=== PATIENT | male | born 1940 | race Caucasian/White ===

== ENCOUNTER 2019-08-09 13:59 | Inpatient (IN) | payer MEDICARE, OTHER ==
[~2019-08-09] VITALS: Ht 162.6 cm; Wt 104.3 kg
[~2019-08-09 13:59] MED LIST: BENA20TA9 PO; ESOM40CA PO; GABA-532 PO; METO50TA16 PO; ROSU5TAB PO; SPIR25TA PO; TAMS-3 PO
[2019-08-09 14:44] LABS: BASOPHILS % (AUTO) 0.6 % (0.0-2.0); EOSINOPHILS # (AUTO) 0.1 K/uL (0.0-0.7); EOSINOPHILS % (AUTO) 1.6 % (0.0-7.0); HEMATOCRIT 38.6 % (36.7-47.1); HEMOGLOBIN 12.8 g/dL (12.5-16.3); LYMPHOCYTES # (AUTO) 2.5 K/uL (20.0-40.0); LYMPHOCYTES % (AUTO) 29.2 % (20.5-51.5); MEAN CORPUSCULAR HEMOGLOBIN 30.5 uug (23.8-33.4); MEAN CORPUSCULAR HGB CONC 33 g/dL (32.5-36.3); MEAN CORPUSCULAR VOLUME 91.7 fL (73.0-96.2); MONOCYTES # (AUTO) 0.6 K/uL (2.0-10.0); MONOCYTES % (AUTO) 7.1 % (0.0-11.0); NEUTROPHILS # (AUTO) 5.3 K/uL (1.8-8.9); NEUTROPHILS % (AUTO) 61.5 % (38.5-71.5); PLATELET COUNT (AUTO) 225 K/uL (152-348); WHITE BLOOD COUNT (AUTO) 8.6 K/uL (3.6-10.2)
[2019-08-09 14:54] LABS: CREATININE 1.1 mg/dL (0.6-1.3); POTASSIUM 4.3 mmol/L (3.5-5.1)
[2019-08-09 14:59] LABS: BILIRUBIN,TOTAL 0.5 mg/dL (0.2-1.0)
[2019-08-09] MEDS ORDERED: VANCOMYCIN IV 1,000 MG in IV DEXTROSE 5% 250 ML IV ONE (16:15)
[2019-08-09] MEDS ORDERED: CIPR-262 PO (16:16)
[2019-08-09] MEDS ORDERED: VANCOMYCIN IV 200 ML ONE (16:26)
--- NOTE | 2019-08-09 17:14 | NUR ---
trnasfered pt to floor in stable condition, pt at bedside the whole er stay.
--- NOTE | 2019-08-09 17:25 | NUR ---
RECEIVED PATIENT FOR ADMISSION 79 YRS OLD WITH DX OF CELLULITIS BOTH LOWER EXT PLACED INTO BED FIXED AND MADE COMFORTABLE PATIENT IS ALERT AND ORIENTED DENIES PAIN OR DISCOMFORTS AT THIS TIME HAS A COLOSTOMY WITH POUCH INTACT HAS 2 FISTULAS ON LEFT AND RIGHT BUTTOCKS DRESSING CHANGED ORDERED BOTH LOWER EXT SWOLLEN ELEVATED ON THE PILLOW MADE COMFORTABLE ADMISSION ORDERS NOTED FROM DR FINLEY. PATIENTS IS AT THE BEDSIDE.
[2019-08-09] MEDS ORDERED: ACETAMINOPHEN 325 MG TABLET PO PRN (17:30)
[2019-08-09] MEDS ORDERED: HYDROCODONE/APAP 5-325MG TABLET PO PRN (17:30)
[2019-08-09] MEDS ORDERED: ONDANSETRON 4 MG/2 ML VIAL IV PRN (17:30)
[2019-08-09] MEDS ORDERED: MAGNESIUM HYDROXIDE 30 ML LIQUID UDC PO PRN (17:30)
[2019-08-09] MEDS ORDERED: Z GUARD REMEDY PASTE 57 GM TUBE TOP PRN (17:30)
[2019-08-09 17:54] VITALS: BP 128/59
--- NOTE | 2019-08-09 18:46 | NUR ---
[employer] HERE HERE TO SEE PATIENT WITH NEW ORDERS AND NOTED
--- NOTE | 2019-08-09 18:47 | NUR ---
CLINICAL PHARMACY NOTES (VANCOMYCIN DOSING) S: 79 YO male with DX of cellulitis ; ordered Vancomycin per pharmacy. O: BUN/SCR 21/1.1, WBC 8.6, TEMP 98.3, DOSING WT 230 LBS; T 1/2 16.5 HRS, CRCL 44.8 A/P: PT received 1 gm Vanco in ER , will administer another 500 mg to make up for the dose of 1500 mg (dose #1) and will continue with regimen of 1500 mg q19h 2nd dose to start tomorrow @ 1400. This regimen would yield peak of 36 and trough of 18. Plan to order trough prior to 4th dose (not ordered yet). ID also add cipro 500 mg po q12h. Will continue to monitor renal fxn and make the necessary adjustments.
[2019-08-09] MEDS ORDERED: VANCOMYCIN IV 500 MG in IV DEXTROSE 5% 100 ML IV SCH (19:00)
--- NOTE | 2019-08-09 19:30 | NUR ---
RECEIVED PATIENT AWAKE IN BED, ALBANIAN SPEAKING MAINLY, BUT SPEAKS/ UNDERSTANDS SOME MEXICAN. PATIENT DENIES PAIN OR SHORTNESS OF BREATH AT THE MOMENT. IV SITE IN LEFT FOREARM 22G PATENT, FLUSHING, AND INTACT. IMMEDIATE NEEDS ATTENDED WILL CONTINUE TO MONITOR
[2019-08-09 20:01] VITALS: BP 130/54
[2019-08-09] MEDS: CIPROFLOXACIN HCL 250 MG TABLET PO SCH (21:05)
[2019-08-09] MEDS: ENOXAPARIN SODIUM 40 MG/0.4 ML DISP.SYRIN SQ SCH (21:09)
[2019-08-09] MEDS: Z GUARD REMEDY PASTE 57 GM TUBE TOP SCH (22:31)
[2019-08-10 04:19] VITALS: BP 125/62
--- NOTE | 2019-08-10 06:40 | NUR ---
PATIENT SLEPT WELL THROUGHOUT THE NIGHT. TOLERATED MEDICATIONS. NO ACUTE CHANGE IN CONDITION. VITAL SIGNS WITHIN NORMAL. WILL ENDORSE TO ONCOMING SHIFT.
[2019-08-10 06:48] LABS: BASOPHILS % (AUTO) 0.5 % (0.0-2.0); CREATININE 0.9 mg/dL (0.6-1.3); EOSINOPHILS # (AUTO) 0.2 K/uL (0.0-0.7); EOSINOPHILS % (AUTO) 2.6 % (0.0-7.0); HEMATOCRIT 37.1 % (36.7-47.1); HEMOGLOBIN 12.4 g/dL (12.5-16.3); LYMPHOCYTES # (AUTO) 2.8 K/uL (20.0-40.0); MAGNESIUM 2.2 mg/dL (1.8-2.4); MEAN CORPUSCULAR HGB CONC 33 g/dL (32.5-36.3); MEAN CORPUSCULAR VOLUME 92.8 fL (73.0-96.2); MONOCYTES # (AUTO) 0.6 K/uL (2.0-10.0); MONOCYTES % (AUTO) 7.7 % (0.0-11.0); NEUTROPHILS # (AUTO) 4.5 K/uL (1.8-8.9); NEUTROPHILS % (AUTO) 55.2 % (38.5-71.5); PHOSPHOROUS 3.6 mg/dL (2.5-4.9); PLATELET COUNT (AUTO) 211 K/uL (152-348); POTASSIUM 4.8 mmol/L (3.5-5.1); WHITE BLOOD COUNT (AUTO) 8.2 K/uL (3.6-10.2)
--- NOTE | 2019-08-10 08:00 | NUR ---
RECEIVED IN BED AWAKE ALERT AND ORIENTED DENIES PAIN OR DISCOMFORTS AT THIS TIME CALL LIGHTS AND PERSONAL BELONGINGS ARE WITHIN EASY REACH BOTH LEGS FLOATED WITH PEARL EDEMA MADE COMFORTABLE WILL CONTINUE TO OBSERVE.
[2019-08-10] MEDS ORDERED: Medication Not On Formulary EA (Rosuvastatin Calcium (Crestor) 10 MG) PO SCH (09:00)
[2019-08-10] MEDS ORDERED: TAMSULOSIN HCL 0.4 MG CAP.SR.24H PO SCH (09:00)
[2019-08-10] MEDS: SPIRONOLACTONE 25 MG TABLET PO SCH (09:39)
[2019-08-10] MEDS: GABAPENTIN 100 MG CAPSULE PO SCH (09:39)
[2019-08-10] MEDS: CIPROFLOXACIN HCL 250 MG TABLET PO SCH ×2 (09:39→20:50)
[2019-08-10] MEDS: BENAZEPRIL HCL 20 MG TABLET PO SCH (09:40)
[2019-08-10] MEDS: METOPROLOL TARTRATE 50 MG TABLET PO SCH (09:41)
[2019-08-10] MEDS: Z GUARD REMEDY PASTE 57 GM TUBE TOP SCH ×2 (09:48→20:51)
[2019-08-10 11:47] VITALS: BP 105/55
[2019-08-10] MEDS: VANCOMYCIN IV 1,500 MG in IV DEXTROSE 5% 500 ML IV SCH (13:30)
--- NOTE | 2019-08-10 14:00 | NUR ---
REMAIN ON ANTIBIOTICS ORDERED WITH NO ADVERSE OR ALLERGIC REACTIONS AT THIS TIME. AT THE BEDSIDE AND ASSISTING WITH CARE
--- NOTE | 2019-08-10 14:26 | NUR ---
CLINICAL PHARMACY NOTES (VANCOMYCIN DOSING) S: 79 YO male with DX of cellulitis ; ordered Vancomycin per pharmacy. O: BUN/SCR 17/0.9, WBC 8.2, TEMP 98.2, DOSING WT 230 LBS; T 1/2 16.5 HRS, CRCL 44.8 A/P: Will continue regimen of 1500mg q19hrs for peak of 36 and trough of 18. Plan to order trough prior to 4th dose (not ordered yet). I2nd dose today at 1400. Will continue to monitor renal fxn and make the necessary adjustments.
[2019-08-10 15:30] VITALS: BP 99/57
[2019-08-10] MEDS ORDERED: VANCOMYCIN IV 1,000 MG in IV DEXTROSE 5% 250 ML IV SCH (17:00)
--- NOTE | 2019-08-10 19:30 | NUR ---
RECEIVED PT AWAKE, ALERT AND ORIENTEDX4. PT IN NO ACUTE DISTRESS. AT BEDSIDE. SAFETY AND COMFORT PROVIDED. IV INTACT. WILL COTNINUE TO MONITOR.
[2019-08-10 20:39] VITALS: BP 116/56
[2019-08-10] MEDS: ATORVASTATIN 20 MG TABLET PO SCH (20:50)
[2019-08-10] MEDS: ENOXAPARIN SODIUM 40 MG/0.4 ML DISP.SYRIN SQ SCH (20:52)
[2019-08-10] MEDS: ZOLPIDEM 5 MG TABLET PO PRN (23:34)
--- NOTE | 2019-08-11 06:15 | NUR ---
PT SLEPT THROUGHOUT THE SHIFT. PT SHOWS NO SIGNS OF ACUTE DISTRESS. SAFETY AND COMFORT PROVIDED. ALL NEEDS ARE MET. PRESCRIBED MEDICATION GIVEN AND PT TOLERATED IT WELL. PT COOPERATIVE WITH CARE. WILL ENDORSE TO INCOMING NURSE FOR CONTINUITY OF CARE.
[2019-08-11 06:30] VITALS: BP 120/67
--- NOTE | 2019-08-11 07:30 | NUR ---
PATIENT IS AWAKE ALERT AND COOPERATIVE IS QAT THE BEDSIDE AT THIS TIME DENIES PAIN OR DISCOMFORTS AT THIS TIME ASSISTED WITH REPOSITIONING WITH HEELS FLOATED REMAIN ON ATB WITH NO ADVERSE OR ALLERGIC REACTIONS AT THIS TIME MADE COMFORTABLE WILL CONTINUE TO OBSERVE.
[2019-08-11 07:32] LABS: BASOPHILS % (AUTO) 0.5 % (0.0-2.0); EOSINOPHILS # (AUTO) 0.2 K/uL (0.0-0.7); EOSINOPHILS % (AUTO) 2.2 % (0.0-7.0); HEMATOCRIT 39.6 % (36.7-47.1); HEMOGLOBIN 13.1 g/dL (12.5-16.3); LYMPHOCYTES # (AUTO) 2.5 K/uL (20.0-40.0); LYMPHOCYTES % (AUTO) 33.8 % (20.5-51.5); MEAN CORPUSCULAR HEMOGLOBIN 30.6 uug (23.8-33.4); MEAN CORPUSCULAR HGB CONC 33 g/dL (32.5-36.3); MEAN CORPUSCULAR VOLUME 92.5 fL (73.0-96.2); MONOCYTES # (AUTO) 0.5 K/uL (2.0-10.0); MONOCYTES % (AUTO) 6.9 % (0.0-11.0); NEUTROPHILS # (AUTO) 4.2 K/uL (1.8-8.9); NEUTROPHILS % (AUTO) 56.6 % (38.5-71.5); PLATELET COUNT (AUTO) 204 K/uL (152-348); RED BLOOD CELL COUNT(AUTO) 4.28 MIL/uL (4.06-5.63); WHITE BLOOD COUNT (AUTO) 7.4 K/uL (3.6-10.2)
[2019-08-11 07:38] LABS: CREATININE 0.9 mg/dL (0.6-1.3); MAGNESIUM 2.2 mg/dL (1.8-2.4); PHOSPHOROUS 3.6 mg/dL (2.5-4.9); POTASSIUM 4.6 mmol/L (3.5-5.1)
--- NOTE | 2019-08-11 07:54 | NUR ---
CLINICAL PHARMACY NOTES (VANCOMYCIN DOSING) S: To continue vanco dosing for this 79 YO male for cellulitis. O: BUN/SCR 17/0.9, WBC 7.4, TEMP 98.2 wt 104 kg ht 162 cm A/P: Will continue same regimen of 1500mg IVPB q19hrs for today.3rd dose today at 0900. Plan to order trough prior to 4th dose (ordered for 08/12 at 0330-RN has been informed to hold 0400 dose if vanco trough level above 20 mcg/ml). Pharmacy shall review the level in am & adjust the dose if needed. will follow
[2019-08-11] MEDS: SPIRONOLACTONE 25 MG TABLET PO SCH (08:34)
[2019-08-11] MEDS: GABAPENTIN 100 MG CAPSULE PO SCH (08:34)
[2019-08-11] MEDS: METOPROLOL TARTRATE 50 MG TABLET PO SCH (08:35)
[2019-08-11] MEDS: VANCOMYCIN IV 1,500 MG in IV DEXTROSE 5% 500 ML IV SCH (08:36)
[2019-08-11] MEDS: CIPROFLOXACIN HCL 250 MG TABLET PO SCH ×2 (08:36→20:08)
[2019-08-11] MEDS: BENAZEPRIL HCL 20 MG TABLET PO SCH (08:36)
[2019-08-11] MEDS: Z GUARD REMEDY PASTE 57 GM TUBE TOP SCH ×2 (08:41→20:12)
--- NOTE | 2019-08-11 09:22 | NUR ---
PHYSICAL THERAPY HERE SEEN PATIENT AND HE WALKED IN THE HALLEAY WITH THE FRONT WHEEL WALKER WITH FAIR ENDURANCE AND BACK TO BED
[2019-08-11 11:18] VITALS: BP 111/43
--- NOTE | 2019-08-11 11:24 | NUR ---
PATIENT SEEN AND EXAMINED BY DR KIRK WITH NEW ORDERS AND NOTED.
[2019-08-11 15:42] VITALS: BP 113/38
--- NOTE | 2019-08-11 16:49 | NUR ---
REMAIN ON ATB ORDERED WITH NO ADVERSE OR ALLERGIC REACTIONS AT THIS TIME TX IN PROGRESS ORDERED AT THE BEDSIDE MADE COMFORTABLE WILL CONTINUE TO OBSERVE
--- NOTE | 2019-08-11 19:30 | NUR ---
RECEIVED PT AWAKE, ALERT AND ORIENTEDX4. PT IN NO ACUTE DISTRESS. IV INTACT. SAFETY AND COMFORT PROVIDED. WILL CONTINUE TO MONITOR.
[2019-08-11] MEDS: ATORVASTATIN 20 MG TABLET PO SCH (20:09)
[2019-08-11] MEDS: ENOXAPARIN SODIUM 40 MG/0.4 ML DISP.SYRIN SQ SCH (20:09)
[2019-08-11 20:10] VITALS: BP 116/53
[2019-08-11] MEDS ORDERED: TAMSULOSIN HCL 0.4 MG CAP.SR.24H PO SCH (21:00)
[2019-08-11] MEDS: ZOLPIDEM 5 MG TABLET PO PRN (23:51)
[2019-08-12 03:49] LABS: BASOPHILS % (AUTO) 0.4 % (0.0-2.0); EOSINOPHILS # (AUTO) 0.2 K/uL (0.0-0.7); EOSINOPHILS % (AUTO) 2.2 % (0.0-7.0); HEMATOCRIT 40.2 % (36.7-47.1); HEMOGLOBIN 13.3 g/dL (12.5-16.3); LYMPHOCYTES # (AUTO) 2.2 K/uL (20.0-40.0); LYMPHOCYTES % (AUTO) 21.8 % (20.5-51.5); MEAN CORPUSCULAR HEMOGLOBIN 30.1 uug (23.8-33.4); MEAN CORPUSCULAR HGB CONC 33 g/dL (32.5-36.3); MEAN CORPUSCULAR VOLUME 90.9 fL (73.0-96.2); MONOCYTES # (AUTO) 0.7 K/uL (2.0-10.0); MONOCYTES % (AUTO) 6.9 % (0.0-11.0); NEUTROPHILS # (AUTO) 6.8 K/uL (1.8-8.9); NEUTROPHILS % (AUTO) 68.7 % (38.5-71.5); PLATELET COUNT (AUTO) 225 K/uL (152-348); RED BLOOD CELL COUNT(AUTO) 4.42 MIL/uL (4.06-5.63)
[2019-08-12 04:01] LABS: CREATININE 0.8 mg/dL (0.6-1.3); PHOSPHOROUS 3.7 mg/dL (2.5-4.9); POTASSIUM 4.2 mmol/L (3.5-5.1)
[2019-08-12 04:12] LABS: THYROID STIMULATING HORMONE 1.522 mIU/mL (0.358-3.740)
[2019-08-12] MEDS: VANCOMYCIN IV 1,500 MG in IV DEXTROSE 5% 500 ML IV SCH (04:17)
[2019-08-12 05:24] VITALS: BP 120/72
--- NOTE | 2019-08-12 06:25 | NUR ---
PT SLEPT THROUGHOUT THE SHIFT. PT IN NO ACUTE DISTRESS. IV INTACT. SAFETY AND COMFORT PROVIDED.PT COMPLIANT WITH CARE. ALL NEEDS ARE MET. WILL ENDORSE TO INCOMING NURSE FOR CONTINUITY OF CARE.
--- NOTE | 2019-08-12 08:00 | NUR ---
PATIENT IS AWAKE ALERT X3 AND COOPERATIVE IS AT THE BEDSIDE. AT THIS TIME PATIENT DENIES PAIN OR DISCOMFORTS AT THIS TIME ASSISTED WITH REPOSITIONING WITH HEELS FLOATED REMAIN ON ABX WITH NO ADVERSE OR ALLERGIC REACTIONS AT THIS TIME MADE COMFORTABLE WILL CONTINUE TO MONITOR FOR SAFETY AND COMFORT.
[2019-08-12] MEDS: Z GUARD REMEDY PASTE 57 GM TUBE TOP SCH (09:23)
[2019-08-12] MEDS: METOPROLOL TARTRATE 50 MG TABLET PO SCH (09:24)
[2019-08-12] MEDS: SPIRONOLACTONE 25 MG TABLET PO SCH (09:25)
[2019-08-12] MEDS: GABAPENTIN 100 MG CAPSULE PO SCH (09:25)
[2019-08-12] MEDS: CIPROFLOXACIN HCL 250 MG TABLET PO SCH (09:26)
[2019-08-12] MEDS: BENAZEPRIL HCL 20 MG TABLET PO SCH (09:26)
[2019-08-12] MEDS ORDERED: DOXY100C41 PO (10:21)
[2019-08-12] MEDS ORDERED: CIPR250T4 PO (10:21)
--- NOTE | 2019-08-12 10:30 | NUR ---
ORDER FOR DISCHARGE RECEIVED. PT ALERT AND ORIENTED X3. PATIENT DENIES PAIN AT THIS TIME. NO ACUTE DISTRESS OR SOB NOTED. CALL LIGHT WITHIN REACH. AT BEDSIDE. TREATED WOUNDS ON BUTTOCKS ORDERED. NURSE STAND BY. PICS TAKEN. WILL PROCEED WITH DISCHARGE PROCEDURE. PT STABLE FOR DISCHARGE PER MD.
[2019-08-12 11:08] VITALS: BP 119/52
--- NOTE | 2019-08-12 12:28 | NUR ---
PT HAS BEEN DISCHARGED. PT STABLE PER MD. NO ACUTE DISTRESS OR SOB NOTED. BELONGINGS RETURNED. BELONGINGS LIST SIGNED. DISCHARGE INSTRUCTIONS, PRESCRIPTION AND FOLLOW UP DR REFERRAL GIVEN TO AND PATIENT WITH GOOD UNDERSTANDING. IV REMOVED INTACT. PICTURES TAKEN. PT ESCORTED TO MAIN LOBBY BY [employer]AFF. PT TO GO HOME VIA PRIVATE TRANSPORT DRIVEN BY .
--- NOTE | 2019-08-12 14:02 | NUR ---
CLINICAL PHARMACY NOTES (VANCOMYCIN DOSING) S: To continue vanco dosing for this 79 YO male for cellulitis. O: BUN/SCR 21/0.8, WBC 10 , TEMP 98 wt 104 kg ht 162 cm Vancomycin trough today at 0330:11 A/P: Since Vancomycin trough is subtherapeutic, will increase dose to 1500mg IV every 15 hrs(second dose tonight at 1900) and draw trough by 4th dose(not ordered yet) for expected trough around 16. Will monitor daily.
[2019-08-12] MEDS ORDERED: VANCOMYCIN IV 1,500 MG in IV DEXTROSE 5% 500 ML IV SCH (19:00)
== END 2019-08-12 12:30 | disposition home or self-care (01) | DRG 603 ==
LOC: ER 13:59 → MEDSURG3 17:09
PROVIDERS: ADMIT Student in an Organized Health Care Education/Training Program; ATTEND Student in an Organized Health Care Education/Training Program
DX: L03.115 Cellulitis of right lower limb (principal); E44.1 Mild protein-calorie malnutrition; L98.8 Other specified disorders of the skin and subcutaneous tissue; N40.0 Benign prostatic hyperplasia without lower urinary tract symptoms; K21.9 Gastro-esophageal reflux disease without esophagitis; E66.01 Morbid (severe) obesity due to excess calories; Z88.0 Allergy status to penicillin; Z86.718 Personal history of other venous thrombosis and embolism; Z85.048 Personal history of other malignant neoplasm of rectum, rectosigmoid junction, and anus; Z92.3 Personal history of irradiation; Z92.21 Personal history of antineoplastic chemotherapy; Z93.3 Colostomy status; H26.9 Unspecified cataract; Z90.49 Acquired absence of other specified parts of digestive tract; Z79.899 Other long term (current) drug therapy; M21.961 Unspecified acquired deformity of right lower leg; S82.491 Other fracture of shaft of right fibula; X58.XXXS Exposure to other specified factors, sequela; Z91.81 History of falling
CPT/HCPCS: 36415; 73590; 83605; 83735; 84100; 84443; 85025; 85610; 85730; 87070; 87077; A4663; G0378; J1650; J3370; J3490; J7050; J7060